=== PATIENT | female | born 1955 | race Two or more races ===

== ENCOUNTER 2020-03-16 08:20 | Day surgery (SDC) | payer OTHER ==
[2020-03-16] MEDS ORDERED: MIDAZOLAM HCL 2 MG/2ML VIAL ONE (10:02)
[2020-03-16] MEDS ORDERED: FENTANYL PF 250MCG/5ML AMPUL ONE (10:03)
[2020-03-16] MEDS ORDERED: CLINDAMYCIN 900 MG/6 ML VIAL ONE (10:04)
[2020-03-16] MEDS ORDERED: ROCURONIUM BROMIDE 50 MG/5 ML ONE (10:05)
[2020-03-16] MEDS ORDERED: FAMOTIDINE/PF INJ 20 MG/2 ML VIAL IV ONE (10:06)
[2020-03-16] MEDS ORDERED: EPINEPHRINE (1:1000) 1 MG/ML AMPUL ONE (10:08)
[2020-03-16] MEDS ORDERED: BUPIVACAINE MPF 0.5% W/EPI INJ 30 ML VIAL ONE (10:09)
[2020-03-16] MEDS ORDERED: HYDROMORPHONE INJ 2 MG/ML DISP.SYRIN ONE (12:35)
== END 2020-03-16 13:55 | disposition home or self-care (01) ==
LOC: DS 08:20
PROVIDERS: ATTEND Orthopaedic Surgery
DX: M75.41 Impingement syndrome of right shoulder (principal); E66.3 Overweight; M65.811 Other synovitis and tenosynovitis, right shoulder
CPT/HCPCS: 23130; 23410; 29823; 87635; 88304; 88311; A4217; A4565; J0171; J1170; J2250; J2405; J2704; J2710; J2765; J3010; J3490 ×5